=== PATIENT | female | born 1955 | race Caucasian/White ===

== ENCOUNTER 2023-08-31 21:15 | Inpatient (IN) | payer MEDICARE, BC ==
[~2023-08-31] VITALS: Ht 170.2 cm; Wt 72.6 kg
[2023-08-31 21:30] VITALS: BP 170/84; TEMP 98.3; O2SAT 100
[2023-08-31] MEDS ORDERED: ESCI10TA PO (22:58)
[2023-08-31] MEDS ORDERED: TRAZ-257 PO (22:59)
[2023-08-31] MEDS ORDERED: LOSA50TA39 PO (23:00)
[2023-08-31] MEDS ORDERED: MAG HYDROX/AL HYDROX/SIMETH 30 ML UDC PO PRN (23:00)
[2023-08-31] MEDS ORDERED: ACETAMINOPHEN 325 MG TABLET PO PRN (23:00)
[2023-08-31] MEDS ORDERED: LORAZEPAM 0.5 MG TABLET PO PRN (23:00)
[2023-08-31] MEDS ORDERED: MAGNESIUM HYDROXIDE 30 ML UDC PO PRN (23:00)
[2023-08-31] MEDS ORDERED: CALC1TAB3 PO (23:01)
[2023-08-31] MEDS ORDERED: ESTR42.511 VG (23:01)
[2023-08-31] MEDS ORDERED: LEVO88TA5 PO (23:02)
[2023-08-31] MEDS ORDERED: FERR325T23 PO (23:03)
[2023-08-31] MEDS: TEMAZEPAM 7.5 MG CAPSULE PO PRN (23:23)
[2023-08-31] MEDS ORDERED: BLOOD SUGAR DIAGNOSTIC 1 EACH STRIP IN ONE (23:30)
[2023-09-01 06:42] LABS: BASOPHILS # (AUTO) 0.1 K/uL (0.0-0.2); BASOPHILS % (AUTO) 2.5 % (0.0-2.0); EOSINOPHILS # (AUTO) 0.1 K/uL (0.0-0.7); EOSINOPHILS % (AUTO) 2.8 % (0.0-6.0); HEMATOCRIT 38 % (33-45); HEMOGLOBIN 12.1 g/dL (11.5-14.8); LYMPHOCYTES # (AUTO) 1.2 K/uL (0.8-4.8); MEAN CORPUSCULAR HEMOGLOBIN 26 PG (26.0-33.0); MEAN CORPUSCULAR HGB CONC 32 g/dl (31.0-36.0); MEAN CORPUSCULAR VOLUME 82 fL (82-100); MONOCYTES # (AUTO) 0.4 K/uL (0.1-1.30); MONOCYTES % (AUTO) 8.2 % (2.0-12.0); NEUTROPHILS # (AUTO) 3.5 K/uL (1.8-8.9); NEUTROPHILS % (AUTO) 64.5 % (43.0-81.0); PLATELET COUNT (AUTO) 302 K/uL (150-450); RED BLOOD CELL COUNT(AUTO) 4.66 MIL/uL (4.0-5.2); RED CELL DISTRIBUTION WIDTH 23.8 % (11.5-15.0); WHITE BLOOD COUNT (AUTO) 5.4 K/uL (4.3-11.0)
[2023-09-01 07:06] LABS: CREATININE 0.7 mg/dL (0.6-1.3); POTASSIUM 4.1 mmol/L (3.5-5.1)
[2023-09-01] MEDS ORDERED: MULT-634 PO (07:52)
[2023-09-01 08:00] VITALS: BP 173/90; TEMP 97.7; O2SAT 96
[2023-09-01 09:41] VITALS: BP 134/75
[2023-09-01] MEDS: LOSARTAN POTASSIUM 50 MG TABLET PO SCH (09:41)
[2023-09-01] MEDS: ESCITALOPRAM OXALATE (10 MG) 10 MG TABLET PO SCH (12:09)
[2023-09-01 16:00] VITALS: BP 185/94; TEMP 98; O2SAT 96
[2023-09-01] MEDS ORDERED: hydrALAZINE HCL 25 MG TABLET PO ONE (16:30)
[2023-09-01 17:54] VITALS: BP 157/79
[2023-09-01 20:00] VITALS: BP 164/83; TEMP 97.2; O2SAT 98
[2023-09-01] MEDS: TRAZODONE 50 MG TABLET PO SCH (21:20)
[2023-09-02] MEDS: LEVOTHYROXINE SODIUM 88 MCG TABLET PO SCH (07:49)
[2023-09-02 08:00] VITALS: BP 165/87; TEMP 97.9; O2SAT 96
[2023-09-02] MEDS: LOSARTAN POTASSIUM 50 MG TABLET PO SCH (08:20)
[2023-09-02] MEDS: ESCITALOPRAM OXALATE (10 MG) 10 MG TABLET PO SCH (08:20)
[2023-09-02] MEDS: hydrALAZINE HCL 25 MG TABLET PO PRN (08:20)
[2023-09-02 16:00] VITALS: BP 163/85; TEMP 98; O2SAT 100
[2023-09-02 20:14] VITALS: BP 145/82; TEMP 98.1; O2SAT 100
[2023-09-02] MEDS: TRAZODONE 50 MG TABLET PO SCH (21:44)
[2023-09-03] MEDS: FERROUS SULFATE (325 MG) 325 MG/TAB TABLET PO SCH (06:23)
[2023-09-03 08:00] VITALS: BP 149/89; TEMP 98.1; O2SAT 97
[2023-09-03] MEDS: LEVOTHYROXINE SODIUM 88 MCG TABLET PO SCH (08:28)
[2023-09-03] MEDS: LOSARTAN POTASSIUM 50 MG TABLET PO SCH (08:30)
[2023-09-03] MEDS: ESCITALOPRAM OXALATE (10 MG) 10 MG TABLET PO SCH (08:30)
[2023-09-03 16:00] VITALS: BP 168/89; TEMP 98.4; O2SAT 100
[2023-09-03] MEDS: TRAZODONE 50 MG TABLET PO SCH (21:07)
[2023-09-03 21:08] VITALS: BP 170/91; TEMP 98.3; O2SAT 99
[2023-09-04] MEDS: TEMAZEPAM 7.5 MG CAPSULE PO PRN (01:36)
[2023-09-04 08:00] VITALS: BP 154/96; TEMP 98.6; O2SAT 99
[2023-09-04] MEDS: LEVOTHYROXINE SODIUM 88 MCG TABLET PO SCH (08:07)
[2023-09-04] MEDS: LOSARTAN POTASSIUM 50 MG TABLET PO SCH (08:08)
[2023-09-04] MEDS: ESCITALOPRAM OXALATE (10 MG) 10 MG TABLET PO SCH (08:08)
[2023-09-04] MEDS ORDERED: ESCITALOPRAM OXALATE (10 MG) 10 MG TABLET PO ONE (13:30)
[2023-09-04 16:00] VITALS: BP 148/81; TEMP 98.1; O2SAT 98
[2023-09-04 19:54] VITALS: BP 168/98; TEMP 97.9; O2SAT 99
[2023-09-04] MEDS: TRAZODONE 50 MG TABLET PO SCH (21:22)
[2023-09-05] MEDS: TEMAZEPAM 7.5 MG CAPSULE PO PRN (01:53)
[2023-09-05] MEDS: FERROUS SULFATE (325 MG) 325 MG/TAB TABLET PO SCH (06:11)
[2023-09-05] MEDS: LEVOTHYROXINE SODIUM 88 MCG TABLET PO SCH (07:56)
[2023-09-05 08:00] VITALS: BP 151/92; TEMP 98.7; O2SAT 98
[2023-09-05] MEDS: LOSARTAN POTASSIUM 50 MG TABLET PO SCH (08:07)
[2023-09-05] MEDS: ESCITALOPRAM OXALATE (10 MG) 10 MG TABLET PO SCH (08:07)
[2023-09-05 16:00] VITALS: BP 140/75; TEMP 98.6; O2SAT 100
[2023-09-05 16:07] VITALS: BP 140/75; TEMP 98.6; O2SAT 98
[2023-09-05 21:14] VITALS: BP 146/73; TEMP 98.1; O2SAT 99
[2023-09-05] MEDS: TRAZODONE 50 MG TABLET PO SCH (21:31)
[2023-09-06 08:00] VITALS: BP 137/81; TEMP 98.8; O2SAT 100
[2023-09-06] MEDS: LEVOTHYROXINE SODIUM 88 MCG TABLET PO SCH (08:19)
[2023-09-06] MEDS: ESCITALOPRAM OXALATE (10 MG) 10 MG TABLET PO SCH (08:19)
[2023-09-06] MEDS: LOSARTAN POTASSIUM 50 MG TABLET PO SCH (08:29)
[2023-09-06 16:00] VITALS: BP 144/85; TEMP 97.9; O2SAT 99
[2023-09-06 20:20] VITALS: BP 158/79; TEMP 98.1; O2SAT 99
[2023-09-06] MEDS: TRAZODONE 50 MG TABLET PO SCH (21:24)
[2023-09-07] MEDS: FERROUS SULFATE (325 MG) 325 MG/TAB TABLET PO SCH (06:16)
[2023-09-07] MEDS: LEVOTHYROXINE SODIUM 88 MCG TABLET PO SCH (07:39)
[2023-09-07 08:00] VITALS: BP 138/79; TEMP 97.8; O2SAT 98
[2023-09-07] MEDS: LOSARTAN POTASSIUM 50 MG TABLET PO SCH (08:03)
[2023-09-07] MEDS: ESCITALOPRAM OXALATE (10 MG) 10 MG TABLET PO SCH (08:03)
[2023-09-07 16:00] VITALS: BP 144/72; TEMP 97.8; O2SAT 96
[2023-09-07 20:00] VITALS: BP 148/76; TEMP 97.6; O2SAT 99
[2023-09-07] MEDS: TRAZODONE 50 MG TABLET PO SCH (21:30)
[2023-09-08 08:00] VITALS: BP 151/81; TEMP 97.6; O2SAT 96
[2023-09-08] MEDS: LOSARTAN POTASSIUM 50 MG TABLET PO SCH (08:45)
[2023-09-08] MEDS: LEVOTHYROXINE SODIUM 88 MCG TABLET PO SCH (08:45)
[2023-09-08] MEDS: ESCITALOPRAM OXALATE (10 MG) 10 MG TABLET PO SCH (08:45)
[2023-09-08 16:00] VITALS: BP 161/94; TEMP 98.5; O2SAT 99
[2023-09-08] MEDS: hydrALAZINE HCL 25 MG TABLET PO PRN (16:29)
[2023-09-08 20:00] VITALS: BP 145/79; TEMP 97.5; O2SAT 97
[2023-09-08] MEDS: TRAZODONE 50 MG TABLET PO SCH (21:35)
[2023-09-09] MEDS: FERROUS SULFATE (325 MG) 325 MG/TAB TABLET PO SCH (07:19)
[2023-09-09 08:00] VITALS: BP 174/92; TEMP 98.1; O2SAT 98
[2023-09-09] MEDS: LOSARTAN POTASSIUM 50 MG TABLET PO SCH (08:10)
[2023-09-09] MEDS: ESCITALOPRAM OXALATE (10 MG) 10 MG TABLET PO SCH (08:10)
[2023-09-09] MEDS: LEVOTHYROXINE SODIUM 88 MCG TABLET PO SCH (08:10)
[2023-09-09 16:00] VITALS: BP 136/76; TEMP 98.6; O2SAT 100
[2023-09-09 21:08] VITALS: BP 158/84; TEMP 98.6; O2SAT 98
[2023-09-09] MEDS: TRAZODONE 50 MG TABLET PO SCH (21:28)
[2023-09-10] MEDS: TEMAZEPAM 7.5 MG CAPSULE PO PRN (01:52)
[2023-09-10 08:00] VITALS: BP 127/75; TEMP 98.4; O2SAT 99
[2023-09-10] MEDS: LEVOTHYROXINE SODIUM 88 MCG TABLET PO SCH (08:15)
[2023-09-10] MEDS: LOSARTAN POTASSIUM 50 MG TABLET PO SCH (08:15)
[2023-09-10] MEDS: ESCITALOPRAM OXALATE (10 MG) 10 MG TABLET PO SCH (08:15)
[2023-09-10 16:00] VITALS: BP 126/78; TEMP 98.1; O2SAT 96
[2023-09-10 20:27] VITALS: BP 152/83; TEMP 98.2; O2SAT 99
[2023-09-10] MEDS: TRAZODONE 50 MG TABLET PO SCH (21:18)
[2023-09-11] MEDS: FERROUS SULFATE (325 MG) 325 MG/TAB TABLET PO SCH (06:15)
[2023-09-11] MEDS: LEVOTHYROXINE SODIUM 88 MCG TABLET PO SCH (07:54)
[2023-09-11 08:00] VITALS: BP 146/84; TEMP 98.2; O2SAT 98
[2023-09-11] MEDS: ESCITALOPRAM OXALATE (10 MG) 10 MG TABLET PO SCH (08:08)
[2023-09-11] MEDS: LOSARTAN POTASSIUM 50 MG TABLET PO SCH (08:08)
[2023-09-11] MEDS: busPIRone 5 MG TABLET PO SCH ×2 (15:59→17:30)
[2023-09-11 16:00] VITALS: BP 155/78; TEMP 98; O2SAT 100
[2023-09-11 20:36] VITALS: BP 149/73; TEMP 97.9; O2SAT 100
[2023-09-11] MEDS: TRAZODONE 50 MG TABLET PO SCH (21:24)
[2023-09-12 08:00] VITALS: BP 147/68; TEMP 97.8; O2SAT 99
[2023-09-12] MEDS: ESCITALOPRAM OXALATE (10 MG) 10 MG TABLET PO SCH (08:36)
[2023-09-12] MEDS: LEVOTHYROXINE SODIUM 88 MCG TABLET PO SCH (08:37)
[2023-09-12] MEDS: LOSARTAN POTASSIUM 50 MG TABLET PO SCH (08:37)
[2023-09-12] MEDS: busPIRone 5 MG TABLET PO SCH ×2 (08:37→17:14)
[2023-09-12 16:00] VITALS: BP 132/74; TEMP 98.6; O2SAT 100
[2023-09-12 20:36] VITALS: BP 136/76; TEMP 98.6; O2SAT 100
[2023-09-12] MEDS: TRAZODONE 50 MG TABLET PO SCH (21:35)
[2023-09-13] MEDS: FERROUS SULFATE (325 MG) 325 MG/TAB TABLET PO SCH (05:50)
[2023-09-13] MEDS: LEVOTHYROXINE SODIUM 88 MCG TABLET PO SCH (07:32)
[2023-09-13 08:00] VITALS: BP 130/76; TEMP 98.7; O2SAT 96
[2023-09-13] MEDS: ESCITALOPRAM OXALATE (10 MG) 10 MG TABLET PO SCH (08:34)
[2023-09-13] MEDS: busPIRone 5 MG TABLET PO SCH ×2 (08:34→16:30)
[2023-09-13] MEDS: LOSARTAN POTASSIUM 50 MG TABLET PO SCH (08:35)
[2023-09-13 16:00] VITALS: BP 129/64; TEMP 98.6; O2SAT 98
[2023-09-13] MEDS: TRAZODONE 50 MG TABLET PO SCH (21:17)
[2023-09-14] MEDS: LEVOTHYROXINE SODIUM 88 MCG TABLET PO SCH (07:46)
[2023-09-14 08:00] VITALS: BP 137/78; TEMP 98.1; O2SAT 99
[2023-09-14] MEDS: busPIRone 5 MG TABLET PO SCH (08:03)
[2023-09-14 08:04] VITALS: BP 137/78
[2023-09-14] MEDS: LOSARTAN POTASSIUM 50 MG TABLET PO SCH (08:04)
[2023-09-14] MEDS: ESCITALOPRAM OXALATE (10 MG) 10 MG TABLET PO SCH (08:04)
== END 2023-09-14 09:35 | disposition home or self-care (01) | DRG 881 ==
LOC: GPS 21:15
PROVIDERS: ADMIT Psychiatry & Neurology Psychosomatic Medicine; ATTEND Internal Medicine
DX: F32.9 Major depressive disorder, single episode, unspecified (principal); R45.851 Suicidal ideations; F29 Unspecified psychosis not due to a substance or known physiological condition; F41.9 Anxiety disorder, unspecified; F32.A Depression, unspecified; E03.9 Hypothyroidism, unspecified; F41.1 Generalized anxiety disorder; G31.84 Mild cognitive impairment of uncertain or unknown etiology; I10 Essential (primary) hypertension; J45.909 Unspecified asthma, uncomplicated; Z85.820 Personal history of malignant melanoma of skin; Z20.822 Contact with and (suspected) exposure to COVID-19; R53.1 Weakness
CPT/HCPCS: 36415; 80048-TC; 80061-TC; 85025-TC